=== PATIENT | male | born 1965 | race African-American/Black ===

== ENCOUNTER 2023-02-11 20:21 | Emergency (ER) | payer MEDICAID ==
[~2023-02-11] VITALS: Ht 172.7 cm; Wt 66.0 kg
[2023-02-11 20:42] VITALS: O2SAT 99
[2023-02-11] MEDS ORDERED: CEPH500C2 MT (22:26)
[2023-02-11 22:37] VITALS: BP 88/50; PULSE 80; RESP 17; TEMP 97.8
== END 2023-02-11 22:38 | disposition home or self-care (01) ==
LOC: ER 20:21
DX: L03.211 Cellulitis of face (principal)
CPT/HCPCS: 99283